=== PATIENT | male | born 1980 | race African-American/Black ===

== ENCOUNTER 2016-11-15 19:22 | Emergency (ER) | payer BC ==
--- NOTE | ~2016-11-15 | CR117 ---
[facility] A Service of [facility] & [facility] RADIOLOGY TEXT RESULTS PATIENT: NORBERTO LAWRENCE LOCATION: SED : 84 UNIT #: [id number] AGE: [address]: Alejandro Cosme MD SEX: M ORDER DR: [id number] [place] [id number] E MR#: [id number] Acc #: [id number] NAME: NORBERTO LAWRENCE : 1980 SEX: M STUDY DATE/TIME: 11/15/2016 19:40 UNIT: SED ROOM: STUDY DESCRIPTION: CR Finger 2 View Thumb Rt Attending Physician: Alejandro Cosme M.D. Ordering Physician: Alejandro Cosme M.D. Primary Care Physician: Franky Murillo M.D. MEDICAL IMAGING REPORT This report is preliminary unless electronic signature is present. EXAM Right thumb, 3 views. INDICATIONS Pain in right thumb since injuring it today. COMPARISON No comparisons. FINDINGS There is no fracture or dislocation. The soft tissue structures are unremarkable. IMPRESSION Negative. Dictated by... Scout Mott M.D. THIS IS AN ELECTRONICALLY VERIFIED REPORT Scout Mott M.D. at 11/16/2016 7:44 PM ARS/toya TD: 11/16/2016 10:12 JOB #: [id number] MEDICAL IMAGING REPORT Page 1 of 1
[~2016-11-15 19:22] MED LIST: A/T/S 2% GEL30 GM TOP; AMOXICILLIN875 MG PO; BACTRIM DS TABL1 TA1 DOB; BACTRIM DS TABL1 TA1 PO; BACTRIM DS TABL1 TA2 PO; BUSPIRONE HCL15 MG PO; COLACE PO; DILAUDID2 MG PO; DIPHENOXYLATE/A1 TA1 PO; DOXYCYCLINE PO; ERYTHROMYCIN O3.5 G1 OP; ERYTHROMYCIN O3.5 GM OS; FLEXERIL10 MG PO; HYDROCODON-ACE1 EAC4 PO; HYDROCODON-ACE1 EAC5 PO; IBUPROFEN; IBUPROFEN800 MG PO; ILOTYCIN1 G1; ILOTYCIN1 G1 OP; ILOTYCIN1 G1 OS; MOBIC PO; MOTRIN400 MG PO; MUCINEX DM1 TAB.SR . PO; MULTI VITAMIN1 EACH PO; NAPROXEN PO; NO MEDICATIONS; PERCOCET 10/3251 TAB PO; PHENERGAN/CODEIN5 ML PO; PHENERGAN25 MG PO; QUETIAPINE FUM100 MG PO; RONDEC-DM ORAL30 ML PO; TYLENOL #3 PO; VICODIN 5/1 TAB 5/50; VICODIN 5/1 TAB 5/50 PO; VOLTAREN50 MG PO; ZITHROMAX PO; [UNRECOGNIZED DRUG - OTHER] PO
== END 2016-11-15 20:21 | disposition home or self-care (01) ==
LOC: SED 19:22
DX: S60.011A Contusion of right thumb without damage to nail, initial encounter (principal); F17.200 Nicotine dependence, unspecified, uncomplicated; W22.8XXA Striking against or struck by other objects, initial encounter; Y92.009 Unspecified place in unspecified non-institutional (private) residence as the place of occurrence of the external cause
CPT/HCPCS: 73140; 99283

== ENCOUNTER 2016-12-06 23:01 | Emergency (ER) | payer BC ==
[~2016-12-06] VITALS: Ht 185.4 cm; Wt 93.0 kg
[2016-12-06] MEDS ORDERED: NO MEDICATIONS (23:09)
== END 2016-12-07 00:11 | disposition home or self-care (01) ==
LOC: SED 23:01
DX: N34.2 Other urethritis (principal)
CPT/HCPCS: 96372; 99282; J0696